=== PATIENT | male | born 1990 | race Caucasian/White ===

== ENCOUNTER 2023-09-26 07:20 | Day surgery (SDC) | payer BC ==
[~2023-09-26 07:20] MED LIST: Midazolam 1 MG/ML 2 ML SDV ONE; Ropivacaine 0.5% 5 MG/ML 30 ML SDV ONE
[2023-09-26] MEDS ORDERED: Bupivacaine 0.25% 10 ML SDV ONE (07:21)
[2023-09-26] MEDS ORDERED: fentaNYL 100 MCG/2 ML SDV ONE (07:38)
[2023-09-26] MEDS ORDERED: Lidocaine 2% 5 ML SDV ONE (07:39)
[2023-09-26] MEDS ORDERED: Propofol 200 MG/20 ML SDV ONE (07:40)
[2023-09-26] MEDS ORDERED: Ondansetron 4 MG/2 ML SDV ONE (07:41)
[2023-09-26] MEDS ORDERED: Ketorolac 30 MG/ML SDV ONE (07:41)
[2023-09-26] MEDS ORDERED: Dexamethasone 4 MG/ML 5 ML MDV ONE (07:41)
[2023-09-26] MEDS ORDERED: Succinylcholine 200 MG/10 ML MDV ONE (07:41)
[2023-09-26] MEDS: Lactated Ringers 1,000 ML IV SCH (07:45)
[2023-09-26] MEDS ORDERED: Sodium Chloride 0.9% 10 ML Syringe FLUSH PRN (07:53)
[2023-09-26] MEDS ORDERED: ceFAZolin 2 GM Vial ONE (08:40)
[2023-09-26] MEDS ORDERED: Sodium Chloride 0.9% 10 ML Syringe FLUSH SCH (09:00)
[2023-09-26] MEDS ORDERED: Ondansetron 4 MG/2 ML SDV IVPUSH PRN (09:53)
[2023-09-26] MEDS ORDERED: fentaNYL 100 MCG/2 ML SDV IVPUSH PRN (09:53)
[2023-09-26] MEDS: HYDROmorphone 0.5 MG/0.5 ML Syringe IVPUSH PRN (09:59)
[2023-09-26] MEDS ORDERED: oxyCODONE 5 MG Tab PO PRN (10:06)
== END 2023-09-26 11:25 | disposition home or self-care (01) ==
LOC: JD.SDS 07:20
PROVIDERS: ATTEND Orthopaedic Surgery
DX: S86.021A Laceration of right Achilles tendon, initial encounter (principal); X58.XXXA Exposure to other specified factors, initial encounter; Z88.2 Allergy status to sulfonamides
CPT/HCPCS: 27560; J0330; J0690; J1100; J1170; J1596; J1885; J2250; J2405; J2704; J2795; J3010; J7120; 01472; J3490